=== PATIENT | female | born 2000 | race Hispanic/Latino ===

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

== ENCOUNTER 2018-05-05 11:03 | Emergency (ER) | payer OTHER ==
[~2018-05-05] VITALS: Ht 167.6 cm; Wt 95.3 kg
[2018-05-05 11:25] VITALS: BP 119/85
== END 2018-05-05 11:36 | disposition home or self-care (01) ==
LOC: FSED 11:03
DX: R11.2 Nausea with vomiting, unspecified (principal); R05 Cough; J01.00 Acute maxillary sinusitis, unspecified; Z33.1 Pregnant state, incidental
CPT/HCPCS: 99282

== ENCOUNTER 2018-06-29 17:41 | Emergency (ER) | payer OTHER ==
[~2018-06-29] VITALS: Ht 167.6 cm; Wt 100.7 kg
[2018-06-29 18:18] LABS: BASOPHILS % 0.2 % (0.0-1.0); EOSINOPHILS # (AUTO) 0.1 (0.0-0.4); HEMATOCRIT 38.8 % (34.2-44.1); HEMOGLOBIN 12.8 g/dL (12.0-16.0); LYMPHOCYTES # (AUTO) 2.1 (1.0-3.2); MEAN CORPUSCULAR HEMOGLOBIN 25.7 pg (28-32); MEAN CORPUSCULAR VOLUME 77.9 fL (81-99); MONOCYTES # (AUTO) 0.7 (0.2-0.8); MONOCYTES % 5.2 % (4.4-11.3); NEUTROPHILS # (AUTO) 9.9 (2.1-6.9); PLATELET COUNT 273 x10e3/uL (140-360); RED BLOOD COUNT 4.98 x10e6/uL (3.6-5.1); RED CELL DISTRIBUTION WIDTH 14.7 % (11.7-14.4)
[2018-06-29 18:30] LABS: BILIRUBIN,URINE NEGATIVE (NEGATIVE); CLARITY,URINE SL CLOUDY (CLEAR); COLOR,URINE YELLOW (YELLOW); KETONES,URINE NEGATIVE (NEGATIVE); LEUKOCYTE ESTERASE ,URINE 1+ (NEGATIVE); NITRITE,URINE NEGATIVE (NEGATIVE); PROTEIN,URINE DIPSTICK NEGATIVE (NEGATIVE); URINE UROBILINOGEN 1 mg/dL (0.2 - 1)
[2018-06-29 18:47] LABS: AMORPHOUS SEDIMENT,URINE MODERATE (FEW); BACTERIA,URINE MODERATE /HPF; EPITHELIAL CELLS,URINE MODERATE /LPF
[2018-06-29 18:50] LABS: ALANINE AMINOTRANSFERASE 44 IU/L (0-55); ALBUMIN 3.8 g/dL (3.5-5.0); ALKALINE PHOSPHATASE 58 IU/L (40-150); ANION GAP 12.5 mmol/L (8-16); BLOOD UREA NITROGEN < 5 mg/dL (7-26); BUN/CREATININE RATIO 8 (6-25); CALCIUM 9.4 mg/dL (8.4-10.2); CARBON DIOXIDE 22 mmol/L (22-29); CHLORIDE 107 mmol/L (98-107); CREATININE, SERUM 0.63 mg/dL (0.57-1.11); EST GLOMERULAR FILTRATION RATE > 60 ML/MIN (60-); GLUCOSE 68 mg/dL (74-118); POTASSIUM 3.5 mmol/L (3.5-5.1); SODIUM 138 mmol/L (136-145)
[2018-06-29 19:12] LABS: HCG,QUANTITATIVE 31775.48 mIU/mL (0-10)
--- NOTE | 2018-06-29 19:57 | Diagnostic Imaging Report ---
Pelvic OB ultrasound CPT code: 41733 History: Lower abdominal pain Previous US: None Gestational age based on LMP of 03/16/2018: 15 weeks 0 days. Findings: There is a single intrauterine in variable position. The cardiac activity is normal and calculated to be 142 bpm. The placenta is located fundal and posterior. There is no evidence of placenta previa. There is normal amniotic fluid. The cervical length is 2.5 cm. The cervical os is closed. The measurements are as follows: BPD: 2.9 cm which equals 15 weeks 2 days HC: 10.7 cm which equals 15 weeks 1 days FL: 1.5 cm which equals 14 weeks 2 days AC: 9.5 cm which equals 15 weeks 5 days. Detailed anatomic survey was not performed. No pelvic fluid identified. No adnexal mass. IMPRESSION: 1. Single, live intrauterine with estimated gestational age by ultrasound of 15 weeks 1 days. No discrepancy to patient's LMP. 2. Follow-up in 3-5 weeks for detailed anatomic survey. Thank you for your referral. Signed by: Dr. Karoline Hanson MD on 06/29/2018 7:53 PM
[2018-06-29] MEDS ORDERED: METRONIDAZOLE 500 MG TAB PO NR (21:00)
[2018-06-29] MEDS ORDERED: CEFTRIAXONE SOD 1 GM VIAL IV ONE (21:00)
[2018-06-29] MEDS ORDERED: CEFTRIAXONE SOD 1 GM/NS 50 ML 50 ML IV ONE (21:15)
== END 2018-06-29 23:56 | disposition home or self-care (01) ==
LOC: ER 17:41
DX: O23.12 Infections of bladder in pregnancy, second trimester (principal); O20.0 Threatened abortion; R10.2 Pelvic and perineal pain
CPT/HCPCS: 36415; 76815; 80053; 81001; 84702; 85025; 86850; 86900; 99284; J0696